=== PATIENT | male | born 2000 | race Caucasian/White ===

== ENCOUNTER 2024-12-10 22:40 | Emergency (ER) | payer MEDICAID, OTHER ==
[2024-12-10 23:00] VITALS: TEMP 99.8
--- NOTE | 2024-12-10 23:47 | ERPHSYRPT ---
- History of Present Illness Time Seen by Provider: 12/10/24 22:50 Source: patient, family Exam Limitations: no limitations Patient Subjective Stated Complaint: pt states he started coughing continuously after taking mucinex dm. states he now feels short of breath Triage Nursing Assessment: pt alert and oriented, answers questions approp. pt ambulate to room with steady gait noted. respirations nonlabored. lung sounds cta bilat. frequent dry cough noted. Physician History: 24 years old with history of Asperger presented in the ER with URI symptoms started couple days ago with progressive worsening. Also reports subjective feeling of fever and chills. Patient reports he was taking Mucinex and after last dose he started coughing spell followed by couple of nonprojectile, nonbilious vomiting with some upper abdominal discomfort. Patient denies any known sick contact. Does have history of asthma and had albuterol neb prior to arrival. Patient is tachycardic which patient reports having some spasms across chest muscles. Denies any nausea. Allergies/Adverse Reactions: bug bites Allergy (Intermediate, Uncoded 12/11/24 00:12) Hx Tetanus, Diphtheria Vaccination/Date Given: No Hx Influenza Vaccination/Date Given: No Hx Pneumococcal Vaccination/Date Given: No Immunizations Up to Date: No Travel Risk - International Travel Have you traveled outside of the country in past 3 weeks: No - Emerging Infectious Disease Are you exhibiting symptoms associated with any current EIDs: Yes Symptoms: Cough: New Onset, Shortness of Breath - Review of Systems Constitutional: Fatigue Eyes: No Symptoms Ears, Nose, & Throat: Nose Congestion, Throat Pain Respiratory: Cough Cardiac: Chest Pain Abdominal/Gastrointestinal: Abdominal Pain, Nausea, Vomiting Genitourinary Symptoms: No Symptoms Musculoskeletal: Myalgias Neurological: No Symptoms Endocrine: No Symptoms Hematologic/Lymphatic: No Symptoms - Past Medical History Respiratory History: Asthma - Past Surgical History Past Surgical History: Yes - Social History Smoking Status: Current every day smoker How long have you smoked: 8 yrs Exposure to second hand smoke: Yes Drug Use: none - Social Determinants of Health Will the patient participate in the screening: Declined to provide - Nursing Vital Signs Nursing Vital Signs: Initial Vital Signs Temperature 99.8 F 12/10/24 22:45 Pulse Rate 128 H 12/10/24 22:45 Respiratory Rate 22 12/10/24 22:45 O2 Sat by Pulse Oximetry 129 H 12/10/24 22:45 Pain Scale Pain Intensity 5 - Physical Exam General Appearance: no apparent distress, alert Eye Exam: PERRL/EOMI Ears, Nose, Throat Exam: pharyngeal erythema Neck Exam: normal inspection, non-tender, supple, full range of motion Respiratory Exam: normal breath sounds, lungs clear Cardiovascular Exam: normal heart sounds, tachycardia Gastrointestinal/Abdomen Exam: soft, normal bowel sounds, No tenderness, No distention, No guarding Back Exam: normal inspection Extremity Exam: normal inspection, normal range of motion, pelvis stable Neurologic Exam: alert, oriented x 3, cooperative Skin Exam: normal color SpO2 Interpretation: normal SpO2: 96 O2 Delivery: Room Air - Course EKG Interpreted by Me: RATE ([id number]), Sinus Tach, NORMAL AXIS, NORMAL INTERVALS, NORMAL QRS Ordered Tests: Active Orders 24 hr Category Date Time Status CHEST 1 VIEW (PORTABLE) Stat Exams 12/10/24 23:43 Taken CBC W DIFF Stat Lab 12/10/24 23:43 Completed CMP Stat Lab 12/10/24 23:43 Completed Lactic Acid Stat Lab 12/10/24 23:43 Completed MAGNESIUM Stat Lab 12/10/24 23:43 Completed TROPONIN Q4H Lab 12/10/24 23:45 Completed TROPONIN Q4H Lab 12/11/24 03:45 Ordered TROPONIN Q4H Lab 12/11/24 07:45 Ordered Medication Summary Discontinued Medications Generic Name Dose Route Start Last Admin Trade Name Aurelia PRN Reason Stop Dose Admin Acetaminophen 975 mg 12/11/24 00:39 12/11/24 00:41 Acetaminophen 325 Mg Tablet PO 12/11/24 00:40 975 mg STAT STA Administration Acetaminophen Confirm 12/11/24 00:40 Acetaminophen 325 Mg Tablet Administered 12/11/24 00:41 Dose 975 mg .ROUTE .STK-MED ONE Hydrocodone Bitart/Acetaminophen 10 ml 12/10/24 23:43 12/11/24 00:21 Hydrocodone/Acetaminophen 5 Ml Udcup PO 12/10/24 23:44 10 ml STAT STA Administration Hydrocodone Bitart/Acetaminophen Confirm 12/11/24 00:19 Hydrocodone/Acetaminophen 5 Ml Udcup Administered 12/11/24 00:20 Dose 10 ml .ROUTE .STK-MED ONE Ketorolac Tromethamine 30 mg 12/11/24 00:39 12/11/24 00:42 Ketorolac Tromethamine 30 Mg/Ml Inj IV 12/11/24 00:40 30 mg STAT ONE Administration Ketorolac Tromethamine Confirm 12/11/24 00:40 Ketorolac Tromethamine 30 Mg/Ml Inj Administered 12/11/24 00:41 Dose 30 mg .ROUTE .STK-MED ONE Oseltamivir Phosphate 75 mg 12/11/24 01:01 Oseltamivir 75 Mg Cap PO 12/11/24 01:02 STAT ONE Lab/Rad Data: Laboratory Result Diagrams 12/10/24 23:43 12/10/24 23:43 Laboratory Results 12/11/24 12/10/24 12/10/24 Range/Units 00:00 Unknown 23:45 WBC (4.23-9.07) x10^3/uL RBC (4.63-6.08) x10^6/uL Hgb (13.7-17.5) g/dL Hct (40.1-51.0) % MCV (79.0-92.2) fL MCH (25.7-32.2) pg MCHC (32.3-36.5) g/dL RDW (11.6-14.4) % Plt Count (163-337) x10^3/uL MPV (9.4-12.4) fL Gran % (34.0-67.9) % Immature Gran % (Auto) (0.001-0.429) % Nucleat RBC Rel Count (0.00-0.2) % Eos # (Auto) (0.04-0.54) x10^3/uL Immature Gran # (Auto) (0.001-0.031) x10^3u/L Absolute Lymphs (auto) (1.32-3.57) x10^3/uL Absolute Monos (auto) (0.30-0.82) x10^3/uL Absolute Nucleated RBC (0.00-0.012) x10^3u/L Lymphocytes % (21.8-53.1) % Monocytes % (5.3-12.2) % Eosinophils % (0.8-7.0) % Basophils % (0.2-1.2) % Absolute Granulocytes (1.78-5.38) x10^3/uL Basophils # (0.01-0.08) x10^3/uL Sodium (135-145) mmol/L Potassium (3.5-5.1) mmol/L Chloride (98-107) mmol/L Carbon Dioxide (22-30) mmol/L Anion Gap (5-15) MEQ/L BUN (9-20) mg/dL Creatinine (0.66-1.25) mg/dL Estimated GFR ML/MIN Glucose (74-106) mg/dL Lactic Acid 2.2 H (0.4-2.0) Calcium (8.4-10.2) mg/dL Magnesium (1.6-2.3) mg/dL Total Bilirubin (0.2-1.3) mg/dL AST (17-59) U/L ALT (0-50) U/L Alkaline Phosphatase (38-126) U/L Troponin I 0.018 (0.000-0.033) ng/mL Serum Total Protein (6.3-8.2) g/dL Albumin (3.5-5.0) g/dL Influenza Type A Ag POSITIVE A (NEGATIVE) Influenza Type B Ag NEGATIVE (NEGATIVE) RSV (PCR) NEGATIVE (NEGATIVE) SARS-CoV-2 (PCR) NEGATIVE (NEGATIVE) 12/10/24 12/10/24 Range/Units 23:43 23:43 WBC 12.2 H (4.23-9.07) x10^3/uL RBC 5.94 (4.63-6.08) x10^6/uL Hgb 15.3 (13.7-17.5) g/dL Hct 44.4 (40.1-51.0) % MCV 74.7 L (79.0-92.2) fL MCH 25.8 (25.7-32.2) pg MCHC 34.5 (32.3-36.5) g/dL RDW 12.7 (11.6-14.4) % Plt Count 332 (163-337) x10^3/uL MPV 9.6 (9.4-12.4) fL Gran % 84.2 H (34.0-67.9) % Immature Gran % (Auto) 0.7 H (0.001-0.429) % Nucleat RBC Rel Count 0.0 (0.00-0.2) % Eos # (Auto) 0.02 L (0.04-0.54) x10^3/uL Immature Gran # (Auto) 0.08 H (0.001-0.031) x10^3u/L Absolute Lymphs (auto) 0.67 L (1.32-3.57) x10^3/uL Absolute Monos (auto) 1.09 H (0.30-0.82) x10^3/uL Absolute Nucleated RBC 0.00 (0.00-0.012) x10^3u/L Lymphocytes % 5.5 L (21.8-53.1) % Monocytes % 9.0 (5.3-12.2) % Eosinophils % 0.2 L (0.8-7.0) % Basophils % 0.4 (0.2-1.2) % Absolute Granulocytes 10.25 H (1.78-5.38) x10^3/uL Basophils # 0.05 (0.01-0.08) x10^3/uL Sodium 132 L (135-145) mmol/L Potassium 3.7 (3.5-5.1) mmol/L Chloride 99 (98-107) mmol/L Carbon Dioxide 24 (22-30) mmol/L Anion Gap 12.7 (5-15) MEQ/L BUN 11 (9-20) mg/dL Creatinine 0.84 (0.66-1.25) mg/dL Estimated GFR 123.3 ML/MIN Glucose 357 H (74-106) mg/dL Lactic Acid (0.4-2.0) Calcium 8.8 (8.4-10.2) mg/dL Magnesium 1.5 L (1.6-2.3) mg/dL Total Bilirubin 1.30 (0.2-1.3) mg/dL AST 33 (17-59) U/L ALT 37 (0-50) U/L Alkaline Phosphatase 122 (38-126) U/L Troponin I (0.000-0.033) ng/mL Serum Total Protein 7.8 (6.3-8.2) g/dL Albumin 4.3 (3.5-5.0) g/dL Influenza Type A Ag (NEGATIVE) Influenza Type B Ag (NEGATIVE) RSV (PCR) (NEGATIVE) SARS-CoV-2 (PCR) (NEGATIVE) - Progress Progress: improved, re-examined Air Movement: good Progress Note: 12/11/24 01:43 24 years old with history of Asperger, diabetes mellitus type 2 not taking any medication for quite some time is evaluated in the ER for worsening cough and some difficulty breathing. Patient was tachycardic on presentation with heart rate in 130s. Patient spiked a fever of 102 while in the ER, given Tylenol and Toradol. He is offered fluids which she declined. Heart rate improved and low 100s on reevaluation. Workup showed white count of 12, chemistries with mildly elevated lactate of 2.2, Positive influenza A and started on Tamiflu. Chest x-ray showed some questionable airspace disease bilaterally reviewed by me with official report pending, given a dose of Zithromax as well. Chemistries also show blood glucose in 370s, patient is given a dose of metformin and I will send a prescription of metformin to go home. Patient blood pressure was in 180s and 190s and has no history of hypertension. It improved in 150s, he is advised to monitor it and follow-up outpatient to see if he needs any antihypertensives on a regular basis. I would not start him on any antihypertensives. Patient has history of asthma and with questionable airspace disease and influenza I will continue with Tamiflu and recommended continue with neb treatments and increase hydration. Discussed signs symptoms of worsening needing return to ER which he seems understanding. Stable for discharge. 12/11/24 01:46 Blood Culture(s) Obtained: No Antibiotics given: Yes Counseled pt/family regarding: lab results, diagnosis, need for follow-up, rad results Medical Desision Making - Independent Historian Additional History obtained from: Mother - Diagnostic Testing Diagnostic test were ordered, analyzed, and reviewed by me: Yes Radiological Interpretation: Interpreted by me, Reviewed by me - Risk of complications The pt has a mod risk of morbidity or mortality based on: Need for prescription drug management - Departure Departure Disposition: Home Clinical Impression: Influenza A, Hyperglycemia, Bronchitis Condition: Stable Critical Care Time: No Referrals: PATRICIA HALL NP [Primary Care Provider] - Follow up with PCP 1 day Instructions: Flu in adults - ED discharge instructions Additional Instructions: Drink plenty of fluids. Monitor your blood pressure and blood sugar regularly, keep a log and follow-up with PCP if for reevaluation and adjustment in dosage of medications. Take Tylenol/ibuprofen as needed for fever, aches and pains, use albuterol as needed. Return to ER for worsening cough, difficulty breathing, persistent high-grade fever, elevated glucose/elevated blood pressure or if having chest pain or palpitations etc. Prescriptions: Metformin HCl 850 mg [Glucophage 850 MG] 850 mg PO BID #60 tablet Oseltamivir 75 mg [Tamiflu 75MG Capsule] 75 mg PO BID #10 cap Azithromycin 250 mg [Zithromax 250 MG TABLET] 250 mg PO DAILY 4 Days #4 tablet
[2024-12-11 00:03] LABS: Absolute Neutrophil Ct (ANC) 10.25 x10^3/uL (1.78-5.38); BASOPHIL % 0.4 % (0.2-1.2); Basophil (Absolute #) 0.05 x10^3/uL (0.01-0.08); Eosinophil % 0.2 % (0.8-7.0); Eosinophil (Absolute #) 0.02 x10^3/uL (0.04-0.54); Hematocrit 44.4 % (40.1-51.0); Hemoglobin 15.3 g/dL (13.7-17.5); IMMATURE GRAN # 0.08 x10^3u/L (0.001-0.031); IMMATURE GRAN % 0.7 % (0.001-0.429); Lymphocyte (Absolute #) 0.67 x10^3/uL (1.32-3.57); Lymphocytes % 5.5 % (21.8-53.1); Mean Cell Volume 74.7 fL (79.0-92.2); Mean Corpuscular Hemoglobin 25.8 pg (25.7-32.2); Mean Corpuscular Hgb Concent. 34.5 g/dL (32.3-36.5); Mean Platelet Volume 9.6 fL (9.4-12.4); Monocyte (Absolute #) 1.09 x10^3/uL (0.30-0.82); Neutrophil % 84.2 % (34.0-67.9); Platelet Count 332 x10^3/uL (163-337); Red Blood Count 5.94 x10^6/uL (4.63-6.08); Red Cell Distribution Width 12.7 % (11.6-14.4); White Blood Count 12.2 x10^3/uL (4.23-9.07)
[2024-12-11 00:17] LABS: ALBUMIN 4.3 g/dL (3.5-5.0); ANION GAP 12.7 MEQ/L (5-15); BILIRUBIN,TOTAL 1.3 mg/dL (0.2-1.3); Calcium 8.8 mg/dL (8.4-10.2); Creatinine 1 0.84 mg/dL (0.66-1.25); EST GLOMERULAR FILTRATION RATE 123.3 ML/MIN; MAGNESIUM 1.5 mg/dL (1.6-2.3); Potassium 3.7 mmol/L (3.5-5.1); Total Protein 7.8 g/dL (6.3-8.2)
[2024-12-11] MEDS ORDERED: HYDROCODONE-ACETAMIN 2.5-108/5 ML SOLUTION ONE (00:19)
[2024-12-11] MEDS: HYDROCODONE-ACETAMIN 2.5-108/5 ML SOLUTION PO STA (00:21)
[2024-12-11] MEDS ORDERED: TORAdol 30 mg Injection ONE (00:40)
[2024-12-11] MEDS ORDERED: TYLENOL 325 MG ONE (00:40)
[2024-12-11 00:41] LABS: INFLUENZA B NEGATIVE (NEGATIVE); RESPIRATORY SYNCTIAL VIRUS NEGATIVE (NEGATIVE); SARS-CoV-2 Xpert Express NEGATIVE (NEGATIVE)
[2024-12-11] MEDS: TYLENOL 325 MG PO STA (00:41)
[2024-12-11] MEDS: TORAdol 30 mg Injection IV ONE (00:42)
[2024-12-11 00:57] LABS: INFLUENZA A POSITIVE (NEGATIVE)
[2024-12-11 01:47] VITALS: BP 156/121; PULSE 113; RESP 18
[2024-12-11 01:48] VITALS: O2SAT 96
[2024-12-11] MEDS ORDERED: Tamiflu 75MG Capsule PO ONE (01:49)
[2024-12-11] MEDS ORDERED: Zithromax 250 MG TABLET ONE (01:49)
[2024-12-11] MEDS: Tamiflu 75MG Capsule PO ONE (01:50)
[2024-12-11] MEDS: Zithromax 250 MG TABLET PO ONE (01:51)
[2024-12-11] MEDS: Glucophage 500 MG PO STA (02:06)
--- NOTE | 2024-12-11 08:27 | XRAY ---
Indication: Cough. Short of breath. Comparison: None Portable chest demonstrates normal heart, lungs, and bony thorax.
== END 2024-12-11 02:14 | disposition home or self-care (01) ==
LOC: ED 22:40
DX: J10.1 Influenza due to other identified influenza virus with other respiratory manifestations (principal); R73.9 Hyperglycemia, unspecified; J40 Bronchitis, not specified as acute or chronic; R05.1 Acute cough; R11.2 Nausea with vomiting, unspecified; Z79.84 Long term (current) use of oral hypoglycemic drugs; Z79.899 Other long term (current) drug therapy; Z72.0 Tobacco use
CPT/HCPCS: 0241U; 36415; 71045; 80053; 83605; 83735; 84484; 85025; 96374; 99285; 99284; J1885; A9270-GY